=== PATIENT | female | born 1980 | race Caucasian/White ===

== ENCOUNTER 2016-03-28 07:47 | Emergency (ER) | payer MEDICAID ==
[~2016-03-28] VITALS: Ht 162.6 cm; Wt 89.8 kg
[2016-03-28 07:55] VITALS: BP 136/88; PULSE 88; RESP 18; TEMP 96.9; O2SAT 98
[2016-03-28] MEDS ORDERED: MECLIZINE HCL 25 MG TABLET (ANITVERT) PO ONE (08:15)
[2016-03-28 08:21] LABS: BASOPHILS % (AUTO) 0.4 % (0.0-2.0); EOSINOPHILS % (AUTO) 0.9 % (0.0-4.0); HEMATOCRIT 40.8 % (36-48); HEMOGLOBIN 14.1 g/dL (12.0-16.0); LYMPHOCYTES # (AUTO) 1.4 K/uL (1.0-5.5); LYMPHOCYTES % (AUTO) 25.7 % (20.5-51.5); MEAN CORPUSCULAR HEMOGLOBIN 29 pg (27-31); MEAN CORPUSCULAR HGB CONC 35 % (32-36); MEAN CORPUSCULAR VOLUME 85 fL (79.0-98.0); MONOCYTES # (AUTO) 0.5 K/uL (0.0-1.0); MONOCYTES % (AUTO) 9.4 % (1.7-9.3); NEUTROPHILS # (AUTO) 3.6 K/uL (1.8-7.7); NEUTROPHILS % (AUTO) 63.6 % (40.0-70.0); PLATELET COUNT (AUTO) 169 K/uL (130-430); RED BLOOD CELL COUNT(AUTO) 4.81 MIL/uL (4.2-6.2); RED CELL DISTRIBUTION WIDTH 12.3 % (9.0-15.0); WHITE BLOOD COUNT (AUTO) 5.5 K/uL (4.8-10.8)
[2016-03-28 08:29] LABS: CALCIUM 8.9 mg/dL (8.4-11.0); CREATININE 0.88 mg/dL (0.55-1.30); POTASSIUM 4.2 mmol/L (3.5-5.1)
[2016-03-28 08:34] LABS: ALBUMIN 3.9 g/dL (3.4-4.8); TOTAL BILIRUBIN 0.8 mg/dL (0.0-1.0); TOTAL PROTEIN, SERUM 7.9 g/dL (6.4-8.3)
[2016-03-28 08:35] LABS: BILIRUBIN,URINE NEGATIVE (NEGATIVE); BLOOD, URINE NEGATIVE (NEGATIVE); CLARITY/URINE SL HAZY (CLEAR); COLOR,URINE YELLOW (YELLOW); GLUCOSE,URINE NEGATIVE (NEGATIVE); KETONES,URINE NEGATIVE (NEGATIVE); LEUKOCYTE ESTERASE ,URINE NEGATIVE (NEGATIVE); NITRITE, URINE NEGATIVE (NEGATIVE); PROTEIN URINE NEGATIVE (NEGATIVE)
[2016-03-28 10:10] VITALS: BP 124/81; PULSE 88; RESP 16; TEMP 97.4; O2SAT 100
== END 2016-03-28 10:10 | disposition home or self-care (01) ==
LOC: SED 07:47
DX: R42 Dizziness and giddiness (principal); I10 Essential (primary) hypertension; J45.909 Unspecified asthma, uncomplicated; N83.209 Unspecified ovarian cyst, unspecified side; Z88.5 Allergy status to narcotic agent
CPT/HCPCS: 36415; 70450; 80053; 81003; 81025; 85025; 99285; J8597

== ENCOUNTER 2017-06-08 08:32 | Emergency (ER) | payer MEDICAID ==
[~2017-06-08] VITALS: Ht 160 cm; Wt 85.7 kg
[2017-06-08 08:41] VITALS: BP_SYST 141
[2017-06-08 08:57] LABS: BASOPHILS % (AUTO) 0.6 % (0.0-2.0); EOSINOPHILS # (AUTO) 0.1 K/uL (0.0-0.4); EOSINOPHILS % (AUTO) 1.4 % (0.0-4.0); HEMATOCRIT 43.9 % (36-48); HEMOGLOBIN 14.5 g/dL (12.0-16.0); LYMPHOCYTES # (AUTO) 1.6 K/uL (1.0-5.5); LYMPHOCYTES % (AUTO) 26.5 % (20.5-51.5); MEAN CORPUSCULAR HEMOGLOBIN 29 pg (27-31); MEAN CORPUSCULAR HGB CONC 33 % (32-36); MEAN CORPUSCULAR VOLUME 88 fL (79.0-98.0); MONOCYTES # (AUTO) 0.5 K/uL (0.0-1.0); MONOCYTES % (AUTO) 8.7 % (1.7-9.3); NEUTROPHILS % (AUTO) 62.8 % (40.0-70.0); PLATELET COUNT (AUTO) 226 K/uL (130-430); RED BLOOD CELL COUNT(AUTO) 5.01 MIL/uL (4.2-6.2); RED CELL DISTRIBUTION WIDTH 11.6 % (9.0-15.0); WHITE BLOOD COUNT (AUTO) 6.2 K/uL (4.8-10.8)
[2017-06-08] MEDS ORDERED: KETOROLAC TROMETHAMINE 30 MG VIAL IVP ONE (09:00)
[2017-06-08] MEDS ORDERED: NACL 0.9% 1,000 ML IV ONE (09:00)
[2017-06-08 09:12] LABS: CALCIUM 9.1 mg/dL (8.4-11.0); CREATININE 0.93 mg/dL (0.55-1.30); POTASSIUM 3.2 mmol/L (3.5-5.1)
[2017-06-08 09:16] LABS: ALBUMIN 3.7 g/dL (3.4-4.8); TOTAL BILIRUBIN 0.5 mg/dL (0.0-1.0); URIC ACID 4.3 mg/dL (2.4-7.0)
[2017-06-08] MEDS ORDERED: POTASSIUM CHLORIDE 10 MEQ TAB.PRT.SR PO ONE (10:30)
[2017-06-08] MEDS ORDERED: POTASSIUM CHLORIDE 10 MEQ TAB.PRT.SR ONE (10:37)
[2017-06-08 11:31] VITALS: BP_SYST 128
== END 2017-06-08 11:31 | disposition home or self-care (01) ==
LOC: SED 08:32
DX: J06.9 Acute upper respiratory infection, unspecified (principal); E87.6 Hypokalemia; M25.562 Pain in left knee; R19.7 Diarrhea, unspecified; J45.909 Unspecified asthma, uncomplicated; I10 Essential (primary) hypertension; Z88.6 Allergy status to analgesic agent
CPT/HCPCS: 36415; 73564; 80053; 84550; 85025; 96361; 96374; 99285; J1885; J7030

== ENCOUNTER 2018-11-18 08:40 | Emergency (ER) | payer MEDICAID ==
[~2018-11-18] VITALS: Ht 160 cm; Wt 83.9 kg
[2018-11-18 08:40] VITALS: BP_SYST 120
[2018-11-18] MEDS ORDERED: KETOROLAC TROMETHAMINE 60 MG/2 ML VIAL IM ONE (09:15)
[2018-11-18 09:41] LABS: BASOPHILS % (AUTO) 0.5 % (0.0-2.0); EOSINOPHILS # (AUTO) 0.1 K/uL (0.0-0.4); EOSINOPHILS % (AUTO) 1.8 % (0.0-4.0); HEMATOCRIT 36.9 % (36-48); HEMOGLOBIN 12.9 g/dL (12.0-16.0); LYMPHOCYTES # (AUTO) 1.3 K/uL (1.0-5.5); LYMPHOCYTES % (AUTO) 28.8 % (20.5-51.5); MEAN CORPUSCULAR HEMOGLOBIN 30 pg (27-31); MEAN CORPUSCULAR HGB CONC 35 % (32-36); MEAN CORPUSCULAR VOLUME 87 fL (79.0-98.0); MONOCYTES # (AUTO) 0.4 K/uL (0.0-1.0); MONOCYTES % (AUTO) 9.9 % (1.7-9.3); NEUTROPHILS # (AUTO) 2.6 K/uL (1.8-7.7); PLATELET COUNT (AUTO) 161 K/uL (130-430); RED BLOOD CELL COUNT(AUTO) 4.25 MIL/uL (4.2-6.2); RED CELL DISTRIBUTION WIDTH 13.1 % (9.0-15.0); WHITE BLOOD COUNT (AUTO) 4.4 K/uL (4.8-10.8)
[2018-11-18 09:55] LABS: CALCIUM 8.3 mg/dL (8.4-11.0); CREATININE 0.74 mg/dL (0.55-1.30); POTASSIUM 3.8 mmol/L (3.5-5.1)
[2018-11-18 10:00] LABS: ALBUMIN 3.2 g/dL (3.4-4.8); TOTAL BILIRUBIN 0.7 mg/dL (0.0-1.0)
[2018-11-18 10:46] VITALS: BP_SYST 120
== END 2018-11-18 10:47 | disposition home or self-care (01) ==
LOC: SED 08:40
DX: J45.909 Unspecified asthma, uncomplicated (principal); I10 Essential (primary) hypertension; Z88.6 Allergy status to analgesic agent
CPT/HCPCS: 36415; 74176; 80053; 81002; 83690; 85025; 96374; 99284; J1885

== ENCOUNTER 2019-05-05 20:22 | Emergency (ER) | payer MEDICAID ==
[~2019-05-05] VITALS: Ht 157.5 cm; Wt 84.4 kg
[2019-05-05 20:25] VITALS: BP_SYST 132
--- NOTE | 2019-05-05 20:25 | NUR ---
Placed in room 1 . Placed on desk monitor, blood pressure machine and pulse oximeter. To gown for exam. Side rails up. Report given to VANNESSA BAUTISTA.
--- NOTE | 2019-05-05 20:25 | NUR ---
Pt presents to ER with c/o chest pain. Pt A&Ox4. Pt states intermittent substernal chest pain began 2 weeks ago. Pt states pain 10/10. Pt states pain radiates to left armpit on inspiration and feels tightness. Pt states in addition to chest pain, pt feels like something is "stuck in throat". Breath sounds bilaterally clear with no use of accessory muscles. Pt denies trauma, fever, cough, nausea, vomiting. Will continue to monitor.
--- NOTE | 2019-05-05 20:30 | NUR ---
# 18 gauge angiocath placed to L AC. Use of asceptic technique. Opsite placed over site. Blood return noted. Blood for lab drawn from site. Flushed with 10 cc of normal saline. No evidence of infiltration noted. Patient tolerated well.
--- NOTE | 2019-05-05 20:55 | NUR ---
ER Dr. Nicole at bedside examining patient.
[2019-05-05 21:12] LABS: BASOPHILS % (AUTO) 0.5 % (0.0-2.0); EOSINOPHILS # (AUTO) 0.3 K/uL (0.0-0.4); EOSINOPHILS % (AUTO) 2.9 % (0.0-4.0); HEMATOCRIT 40.3 % (36-48); HEMOGLOBIN 13.8 g/dL (12.0-16.0); LYMPHOCYTES # (AUTO) 2.3 K/uL (1.0-5.5); LYMPHOCYTES % (AUTO) 22.9 % (20.5-51.5); MEAN CORPUSCULAR HEMOGLOBIN 30 pg (27-31); MEAN CORPUSCULAR HGB CONC 34 % (32-36); MEAN CORPUSCULAR VOLUME 87 fL (79.0-98.0); MONOCYTES # (AUTO) 0.9 K/uL (0.0-1.0); MONOCYTES % (AUTO) 9.3 % (1.7-9.3); NEUTROPHILS # (AUTO) 6.5 K/uL (1.8-7.7); NEUTROPHILS % (AUTO) 64.4 % (40.0-70.0); PLATELET COUNT (AUTO) 243 K/uL (130-430); RED BLOOD CELL COUNT(AUTO) 4.61 MIL/uL (4.2-6.2); RED CELL DISTRIBUTION WIDTH 12.8 % (9.0-15.0); WHITE BLOOD COUNT (AUTO) 10.1 K/uL (4.8-10.8)
[2019-05-05 21:55] LABS: CALCIUM 8.8 mg/dL (8.4-11.0); CREATININE 1.08 mg/dL (0.55-1.30); POTASSIUM 4.1 mmol/L (3.5-5.1)
[2019-05-05 22:01] LABS: ALBUMIN 3.4 g/dL (3.4-4.8); TOTAL BILIRUBIN 0.3 mg/dL (0.0-1.0)
--- NOTE | 2019-05-05 22:44 | NUR ---
Pt given blanket for comfort and water. Will continue to monitor.
[2019-05-05 23:56] VITALS: BP_SYST 110
--- NOTE | 2019-05-05 23:56 | NUR ---
Patient given written and verbal discharge instructions and verbalizes understanding. ER MD Nicole discussed with patient the results and treatment provided. Patient in stable condition. ID arm band removed. IV catheter removed intact and dressing applied, no active bleeding. No Rx given. Patient educated on pain management and to follow up with PMD. Pain Scale 0/10. Opportunity for questions provided and answered. Medication side effect fact sheet provided.
== END 2019-05-05 23:56 | disposition home or self-care (01) ==
LOC: SED 20:22
DX: R07.89 Other chest pain (principal); J45.909 Unspecified asthma, uncomplicated; I10 Essential (primary) hypertension; Z90.710 Acquired absence of both cervix and uterus; Z88.6 Allergy status to analgesic agent
CPT/HCPCS: 36415; 71045; 80053; 82550-TC; 83880; 84484; 85025; 85379; 93005; 99285

== ENCOUNTER 2021-09-29 18:21 | Emergency (ER) | payer MEDICAID ==
[~2021-09-29] VITALS: Ht 157.5 cm; Wt 67.6 kg
[2021-09-29 18:27] VITALS: BP_SYST 116
--- NOTE | 2021-09-29 18:30 | NUR ---
PT TRIAGED IN WAITING ROOM. PT HAS C/O C/P X 4D AY, FEVER X5 DAYS NAUSEA, COUGH CAUSING SOB AT TIMES. PT WAS DX 5 DAYS AGO WITH UTI, BUT NOT ON MEDICATION FOR IT. PT IS TACHYCARDIC HR 110S. TEMP 99.3. RESP E/U. ON R/A. LUNG SOUNDS DIMINISHED. O2 ST 95%. PT HAS PAST MEDICAL HX OF UTI, HTN, ASTHMA. EKG OBTAINED.
--- NOTE | 2021-09-29 18:39 | NUR ---
DR. SEWELL MADE AWARE PT HAS BEEN TRIAGE AND TAKEN AT THIS TIME FOR CXR.
[2021-09-29 19:35] LABS: BASOPHILS % (AUTO) 0.4 % (0.0-2.0); EOSINOPHILS # (AUTO) 0.1 K/uL (0.0-0.4); EOSINOPHILS % (AUTO) 2.3 % (0.0-4.0); HEMATOCRIT 34.3 % (36-48); HEMOGLOBIN 11.7 g/dL (12.0-16.0); LYMPHOCYTES # (AUTO) 1.1 K/uL (1.0-5.5); LYMPHOCYTES % (AUTO) 20.4 % (20.5-51.5); MEAN CORPUSCULAR HEMOGLOBIN 27 pg (27-31); MEAN CORPUSCULAR HGB CONC 34 % (32-36); MEAN CORPUSCULAR VOLUME 80 fL (79.0-98.0); MONOCYTES # (AUTO) 0.5 K/uL (0.0-1.0); MONOCYTES % (AUTO) 9.3 % (1.7-9.3); NEUTROPHILS # (AUTO) 3.5 K/uL (1.8-7.7); NEUTROPHILS % (AUTO) 67.6 % (40.0-70.0); PLATELET COUNT (AUTO) 311 K/uL (130-430); RED CELL DISTRIBUTION WIDTH 14.1 % (9.0-15.0); WHITE BLOOD COUNT (AUTO) 5.2 K/uL (4.8-10.8)
[2021-09-29 19:44] LABS: ANION GAP 8 (5-15); CALCIUM 8.9 mg/dL (8.4-11.0); CHLORIDE 99 mmol/L (98-107); CREATININE 0.73 mg/dL (0.55-1.30); GLUCOSE 101 mg/dL (70-99); POTASSIUM 3.6 mmol/L (3.5-5.1); SODIUM SERUM 136 mmol/L (136-145); UREA NITROGEN, BLOOD 8 mg/dL (8-21)
[2021-09-29 19:46] LABS: GFR AFRICAN AMERICAN 113 mL/min (>90)
[2021-09-29 20:00] LABS: ALANINE AMINOTRANSFERASE 18 U/L (12-78); ALBUMIN 2.8 g/dL (3.4-4.8); ASPARTATE AMINOTRANSFERASE 46 U/L (10-37); TOTAL BILIRUBIN 0.4 mg/dL (0.0-1.0)
--- NOTE | 2021-09-29 20:19 | NUR ---
Patient to ER bed 07 for evaluation. Side rails up. Report given to Callie BAUTISTA.
--- NOTE | 2021-09-29 20:30 | NUR ---
COVID sample collected and sent to lab.
[2021-09-29] MEDS ORDERED: ZIT250 PO (20:33)
[2021-09-29] MEDS ORDERED: PRED20TA PO (20:33)
--- NOTE | 2021-09-29 20:39 | NUR ---
PT SEEN AND EXAMINE BY DR. SEWELL. PT AAOX4 AT THIS TIME, NO SOB NOTED AND NOT IN ANY DISTRESS AT THIS TIME.
--- NOTE | 2021-09-29 20:58 | NUR ---
INFORMED DR. SEWELL THAT PT HAS TEMP AND RECENTLY DX WITH UTI. MD RE ASSESS PT AT BEDSIDE AND INFORMED PT THAT SHE BE GIVEN ABX AND MOTRIN.
[2021-09-29] MEDS ORDERED: NITR-85 PO (20:59)
[2021-09-29] MEDS ORDERED: IBUPROFEN 800 MG TABLET PO ONE (21:00)
[2021-09-29] MEDS ORDERED: IBUP-1969 PO (21:00)
[2021-09-29] MEDS ORDERED: cefTRIAXone 1 GM in LIDOCAINE 1%, 20 ML MDV 2.1 ML IM ONE (21:00)
[2021-09-29 21:03] VITALS: BP_SYST 105
--- NOTE | 2021-09-29 21:34 | NUR ---
PT INSISTED TO GO HOME, SHE STATED THAT SHE CANNOT WAIT FOR HER VITALS TO BE RECHECKED. DC INSTRUCTION AND PRESCRIPTION WERE GIVEN TO PT ALSO INSTRUCTED TO F/U WITH HER PCP AND RECEHECK HER TEMP AT HOME. SHE VRBALIZED UNDERSTANDING
== END 2021-09-29 21:36 | disposition home or self-care (01) ==
LOC: SED 18:21
DX: J45.909 Unspecified asthma, uncomplicated (principal); R50.9 Fever, unspecified; R05.9 Cough, unspecified; I10 Essential (primary) hypertension; Z88.5 Allergy status to narcotic agent; Z79.899 Other long term (current) drug therapy; Z20.822 Contact with and (suspected) exposure to COVID-19
CPT/HCPCS: 99285; 71045; 87426; 80053; 85025; 84484; 36415; 93005; 96372; J0696; J2001

== ENCOUNTER 2021-10-08 14:27 | Inpatient (IN) | payer MEDICAID ==
[~2021-10-08] VITALS: Ht 157.5 cm; Wt 62.6 kg
[~2021-10-08 14:27] MED LIST: IBUP-1969 PO; NITR-85 PO; PRED20TA PO
[2021-10-08 14:30] VITALS: BP_SYST 112
--- NOTE | 2021-10-08 14:34 | NUR ---
Patient to ER bed 5 to gown for evaluation. Side rails up. Report given to MELISSA BAUTISTA
--- NOTE | 2021-10-08 14:35 | NUR ---
Pt BIBA BLS coming from home ambulatory with steady gait. Pt c/o having sob, lack of appetite, inintentional vince loss from 160 to 120lb within 4 weeks, fatigue, chest pressure, and dyaphoresis. Pt has hx of HTN and Asthma. Allergic to Tramadol. A&Ox4. Skin intact. VSS. Denies n/v. Cranial nerves intact. Pupils PERRLA. Bed in lowest position.
--- NOTE | 2021-10-08 14:39 | NUR ---
ER at bedside examining patient.
[2021-10-08] MEDS ORDERED: IPRATROPIUM/ALBUTEROL SULFATE 3 ML AMPUL.NEB (DUONEB) INH ONE (14:45)
[2021-10-08] MEDS ORDERED: methylPREDNISolone SOD SUCC/PF 62.5 MG/ML VIAL IVP ONE (14:45)
--- NOTE | 2021-10-08 14:59 | NUR ---
EKG performed at by Lela BAUTISTA. Physician given copy of EKG for review.
--- NOTE | 2021-10-08 14:59 | NUR ---
RT at bedside.
--- NOTE | 2021-10-08 15:03 | NUR ---
Covid and flu swan done and sent to lab.
--- NOTE | 2021-10-08 15:20 | NUR ---
Consent for CT Angio of Chest with contast obtained.
--- NOTE | 2021-10-08 15:25 | NUR ---
# 20 gauge angiocath placed to right AC. Use of asceptic technique. Opsite placed over site. Blood return noted. Flushed with 10 cc of normal saline. No evidence of infiltration noted. Patient tolerated well.
[2021-10-08 15:31] LABS: BASOPHILS % (AUTO) 0.4 % (0.0-2.0); EOSINOPHILS % (AUTO) 0.2 % (0.0-4.0); HEMATOCRIT 36.6 % (36-48); HEMOGLOBIN 12.2 g/dL (12.0-16.0); LYMPHOCYTES # (AUTO) 2.8 K/uL (1.0-5.5); LYMPHOCYTES % (AUTO) 31.6 % (20.5-51.5); MEAN CORPUSCULAR HEMOGLOBIN 26 pg (27-31); MEAN CORPUSCULAR HGB CONC 33 % (32-36); MEAN CORPUSCULAR VOLUME 79 fL (79.0-98.0); MONOCYTES # (AUTO) 0.8 K/uL (0.0-1.0); NEUTROPHILS # (AUTO) 5.2 K/uL (1.8-7.7); NEUTROPHILS % (AUTO) 58.8 % (40.0-70.0); PLATELET COUNT (AUTO) 277 K/uL (130-430); RED BLOOD CELL COUNT(AUTO) 4.63 MIL/uL (4.2-6.2); RED CELL DISTRIBUTION WIDTH 14.1 % (9.0-15.0); WHITE BLOOD COUNT (AUTO) 8.9 K/uL (4.8-10.8)
--- NOTE | 2021-10-08 15:41 | NUR ---
Pt states she cannot urinate at this time. A cup of water given to pt.
[2021-10-08 15:49] LABS: ANION GAP 10 (5-15); CALCIUM 8.9 mg/dL (8.4-11.0); CHLORIDE 96 mmol/L (98-107); CREATININE 0.66 mg/dL (0.55-1.30); GLUCOSE 88 mg/dL (70-99); POTASSIUM 3.5 mmol/L (3.5-5.1); SODIUM SERUM 133 mmol/L (136-145); UREA NITROGEN, BLOOD 11 mg/dL (8-21)
[2021-10-08 15:58] LABS: ALANINE AMINOTRANSFERASE 22 U/L (12-78); ALBUMIN 2.6 g/dL (3.4-4.8); ASPARTATE AMINOTRANSFERASE 44 U/L (10-37); TOTAL BILIRUBIN 0.9 mg/dL (0.0-1.0)
[2021-10-08 16:06] LABS: GFR AFRICAN AMERICAN 127 mL/min (>90)
--- NOTE | 2021-10-08 16:07 | NUR ---
Urine preg done and results were negative. Radiology made aware.
[2021-10-08 16:09] LABS: PROTHROMBIN TIME 10.6 SECS (9.5-12.5)
[2021-10-08] MEDS ORDERED: iohexoL 350 mgI/mL, 100 ML INFUS..BTL IV ONE (16:12)
--- NOTE | 2021-10-08 16:17 | NUR ---
Patient transported to radiology via wheelchair, accompanied by pc tech.
[2021-10-08] MEDS ORDERED: NACL 0.9% 1,000 ML IV ONE (16:30)
--- NOTE | 2021-10-08 16:34 | NUR ---
Returned from radiology, back to [facility].
[2021-10-08] MEDS ORDERED: DOXYCYCLINE HYCLATE 100 MG CAPSULE PO ONE (16:45)
[2021-10-08] MEDS ORDERED: cefTRIAXone 1 GM IVPB PREMIX 50 ML IV ONE (16:45)
--- NOTE | 2021-10-08 17:57 | NUR ---
Admit bed requested Patient will be admitted to care of . Admitted to Tele unit. Diagnosis Pneumonia Inpatient (Yes or No) yes Observation (Yes or No) no Orientation concerns or request close to nursing station (Yes or No) no Covid Status negative On vent or bipap no Isolation requirements no Needs a sitter no From Home (Yes or if No enter name of facility) yes Requires Dialysis (Yes or No) no Med Rec Completed (Yes of No) yes
[2021-10-08] MEDS: NACL 0.9% 1,000 ML IV SCH ×2 (18:00→23:02)
[2021-10-08 18:11] LABS: FREE T4 (FREE THYROXINE) 1.7 ng/dl (0.8-1.5); THYROID STIMULATING HORMONE 0.38 uIu/mL (0.36-3.74)
--- NOTE | 2021-10-08 18:22 | NUR ---
Provided with a Reg. Food Tray for dinner.
--- NOTE | 2021-10-08 20:04 | NUR ---
Received report from Lela BAUTISTA Pt resting comfortably in bed AOX4 VSS Able to make needs known NAD at this time Will continue to monitor
--- NOTE | 2021-10-08 20:32 | NUR ---
Patient will be admitted to [id number]. Belongings list completed. Complete and up to date summary report printed. SBAR report to be given at bedside with opportunity for questions.
[2021-10-08 20:45] VITALS: BP_SYST 118
[2021-10-08] MEDS ORDERED: ZOLPIDEM TARTRATE 5 MG TABLET PO PRN (21:00)
[2021-10-08] MEDS ORDERED: ACETAMINOPHEN 500 MG TABLET PO PRN (21:00)
[2021-10-08] MEDS ORDERED: DOCUSATE SODIUM 100 MG/10 ML UDC PO PRN (21:00)
[2021-10-08] MEDS ORDERED: guaiFENesin/DEXTROMETHORPHAN 10 ML UDC PO PRN (21:00)
--- NOTE | 2021-10-08 22:30 | NUR ---
PT C/O SOB. NEW ORDER RECEIVED FOR BREATHING TREATMENT. RT AT BEDSIDE GIVING TREATMENT. ALL OTHER NEEDS MEET AT THIS TIME. WILL CONTINUE TO MONITOR.
[2021-10-08] MEDS ORDERED: IPRATROPIUM/ALBUTEROL SULFATE 3 ML AMPUL.NEB (DUONEB) INH PRN (23:00)
[2021-10-08 23:51] LABS: PHOSPHORUS 3.9 mg/dL (2.7-4.5)
[2021-10-09 00:05] VITALS: BP_SYST 124
[2021-10-09 00:45] VITALS: BP_SYST 118
--- NOTE | 2021-10-09 03:39 | NUR ---
CONSULTATION PAGED/CALLED Reason for Consultation: PNA Person Who was Notified:LISA Consulting Physician: KARISHMA Cap Blocker Specialty: Ordering Physician: ANAHI
[2021-10-09 06:40] LABS: BASOPHILS % (AUTO) 0.1 % (0.0-2.0); HEMATOCRIT 30.5 % (36-48); HEMOGLOBIN 10.8 g/dL (12.0-16.0); LYMPHOCYTES # (AUTO) 0.5 K/uL (1.0-5.5); LYMPHOCYTES % (AUTO) 10.7 % (20.5-51.5); MEAN CORPUSCULAR HEMOGLOBIN 27 pg (27-31); MEAN CORPUSCULAR HGB CONC 35 % (32-36); MEAN CORPUSCULAR VOLUME 78 fL (79.0-98.0); MONOCYTES # (AUTO) 0.3 K/uL (0.0-1.0); MONOCYTES % (AUTO) 6.4 % (1.7-9.3); NEUTROPHILS % (AUTO) 82.8 % (40.0-70.0); PLATELET COUNT (AUTO) 277 K/uL (130-430); RED BLOOD CELL COUNT(AUTO) 3.93 MIL/uL (4.2-6.2); RED CELL DISTRIBUTION WIDTH 13.9 % (9.0-15.0); WHITE BLOOD COUNT (AUTO) 4.9 K/uL (4.8-10.8)
[2021-10-09 06:57] LABS: PROTHROMBIN TIME 10.3 SECS (9.5-12.5)
[2021-10-09 07:48] LABS: CREATININE 0.53 mg/dL (0.55-1.30); POTASSIUM 4.4 mmol/L (3.5-5.1)
[2021-10-09 07:49] VITALS: BP_SYST 121
[2021-10-09] MEDS: PANTOPRAZOLE SODIUM 40 MG TAB PO SCH (08:16)
[2021-10-09] MEDS: cefTRIAXone 1 GM IVPB PREMIX 50 ML IV SCH (08:36)
[2021-10-09] MEDS ORDERED: POTASSIUM CHLORIDE 20 MEQ TAB.PRT.SR PO PRN (09:00)
[2021-10-09] MEDS ORDERED: IPRATROPIUM/ALBUTEROL SULFATE 3 ML AMPUL.NEB (DUONEB) INH PRN (09:45)
[2021-10-09] MEDS: IPRATROPIUM/ALBUTEROL SULFATE 3 ML AMPUL.NEB (DUONEB) INH SCH ×4 (11:47→23:00)
[2021-10-09 12:00] VITALS: BP_SYST 123
[2021-10-09] MEDS: ONDANSETRON HCL 4 MG/2 ML VIAL IVP PRN ×2 (12:20→18:11)
[2021-10-09] MEDS: NACL 0.9% 1,000 ML IV SCH ×2 (14:00→21:44)
[2021-10-09 16:32] VITALS: BP_SYST 106
--- NOTE | 2021-10-09 18:12 | NUR ---
PT GIVEN ZOFRAN AGAIN, PT REPORTED THAT SHE JUST TOOK A BITE OF THE MEAT AND SHE STARTED VOMITING. PT'S VOMITUS IS CLEAR AND FROTHY. WILL CONTINUE TO MONITOR.
--- NOTE | 2021-10-09 18:55 | NUR ---
PT HAD A GOOD RELIEF FROM ZOFRAN, N/V SUBSIDED, PT REFUSED TO EAT AT THIS TIME. GIVEN SOME JELLO.
[2021-10-09 20:00] VITALS: BP_SYST 105
[2021-10-10] VITALS: BP_SYST 117
[2021-10-10] MEDS: IPRATROPIUM/ALBUTEROL SULFATE 3 ML AMPUL.NEB (DUONEB) INH SCH ×2 (03:00→07:40)
[2021-10-10 03:55] LABS: BILIRUBIN,URINE NEGATIVE (NEGATIVE); BLOOD, URINE NEGATIVE (NEGATIVE); CLARITY/URINE CLEAR (CLEAR); COLOR,URINE YELLOW (YELLOW); GLUCOSE,URINE NEGATIVE (NEGATIVE); KETONES,URINE TRACE (NEGATIVE); LEUKOCYTE ESTERASE ,URINE TRACE (NEGATIVE); NITRITE, URINE NEGATIVE (NEGATIVE); PROTEIN URINE NEGATIVE (NEGATIVE)
[2021-10-10 04:01] LABS: BACTERIA,URINE RARE /HPF (None Seen)
[2021-10-10 04:28] LABS: BARBITURATE, URINE NEGATIVE (NEG <=200); METHAMPHETAMINES SCREEN,URINE NEGATIVE (NEG <=500); URINE AMPHETAMINE NEGATIVE (NEG <=500); URINE METHADONE NEGATIVE (NEG <=200)
[2021-10-10 04:29] LABS: BENZODIAZEPINE, URINE NEGATIVE (NEG <=150); CANNABINOID, URINE NEGATIVE (NEG <=50); COCAINE, URINE NEGATIVE (NEG <=150); OPIATE, URINE POSITIVE (NEG <=100); PHENCYCLIDINE SCREEN,URINE NEGATIVE (NEG <=25); UR TRICYCLIC ANTIDEPRESSANTS NEGATIVE (NEG <=300); URINE OXYCODONE SCREEN NEGATIVE (NEG <=100); URINE PROPOXYPHENE SCREEN NEGATIVE (NEG <=300)
[2021-10-10] MEDS: ONDANSETRON HCL 4 MG/2 ML VIAL IVP PRN (05:46)
[2021-10-10 06:39] LABS: BASOPHILS % (AUTO) 0.2 % (0.0-2.0); EOSINOPHILS % (AUTO) 0.1 % (0.0-4.0); HEMATOCRIT 31.8 % (36-48); LYMPHOCYTES % (AUTO) 10.3 % (20.5-51.5); MEAN CORPUSCULAR HEMOGLOBIN 27 pg (27-31); MEAN CORPUSCULAR HGB CONC 35 % (32-36); MEAN CORPUSCULAR VOLUME 78 fL (79.0-98.0); MONOCYTES # (AUTO) 0.6 K/uL (0.0-1.0); MONOCYTES % (AUTO) 5.8 % (1.7-9.3); NEUTROPHILS # (AUTO) 8.3 K/uL (1.8-7.7); NEUTROPHILS % (AUTO) 83.6 % (40.0-70.0); PLATELET COUNT (AUTO) 329 K/uL (130-430); RED BLOOD CELL COUNT(AUTO) 4.06 MIL/uL (4.2-6.2); RED CELL DISTRIBUTION WIDTH 13.8 % (9.0-15.0)
[2021-10-10 06:58] LABS: CALCIUM 7.9 mg/dL (8.4-11.0); CREATININE 0.77 mg/dL (0.55-1.30); POTASSIUM 3.9 mmol/L (3.5-5.1)
--- NOTE | 2021-10-10 07:43 | NUR ---
RT NOTE: 0743 Stopped treatment due to patient being tachycardic. Patient placed back on 2LPM nasal cannula. RN at bedside tending to patient. Addendum: 10/10/21 at 0747 by Melvina Leo RT Amended: Links added.
[2021-10-10 08:02] VITALS: BP_SYST 108
--- NOTE | 2021-10-10 08:12 | NUR ---
DR MORRISSEY IS HERE , INFORMED MD HENDERSON PT'S CURRENT HR OF 142 THIS AM AND VOMITING SINCE YESTERDAY FOR WHICH ZOFRAN HAS BEEN GIVEN. SAID SHE WILL TAKE A LOOK.
[2021-10-10] MEDS: cefTRIAXone 1 GM IVPB PREMIX 50 ML IV SCH (08:31)
[2021-10-10] MEDS: PANTOPRAZOLE SODIUM 40 MG TAB PO SCH (08:31)
--- NOTE | 2021-10-10 09:20 | NUR ---
DR CORDOVA HERE AND SEEN PT. POC -> EGD IN AM.
[2021-10-10] MEDS: AZITHROMYCIN 500 MG in NS 250 ML IV SCH (09:32)
--- NOTE | 2021-10-10 09:35 | NUR ---
Dr. Jasmine donation specialist for Dr Brooks has seen the patient.
[2021-10-10] MEDS: HYDROcodone/ACETAMIN 5-325 MG TAB (NORCO/ VICODIN) PO PRN ×2 (10:28→23:09)
[2021-10-10] MEDS: METHYLPREDNISOLONE SOD SUCC 40 MG/ML VIAL IVP SCH ×3 (11:39→23:07)
--- NOTE | 2021-10-10 11:44 | NUR ---
PT HAD A GOOD PAIN RELIEF FROM NORCO FOR HER EPIGASTRIC PAIN.
[2021-10-10] MEDS: levalbuterol HCL 0.63 MG/3 ML VIAL.NEB INH SCH ×2 (13:00→19:00)
[2021-10-10 14:02] VITALS: BP_SYST 103
--- NOTE | 2021-10-10 17:19 | NUR ---
Dietitian Recommendations * Continue Clear liquid diet (comes standard w/ Ensure Clear TID; yields 720 kcal/day, 24 gm protein/day) and plan for NPO prior to procedure * Consider ONS if/when medically appropriate LP, MS, RD Please refer to Nutrition Assessment for details. Addendum: 10/10/21 at [address] Amended: Links added.
[2021-10-10 17:53] VITALS: BP_SYST 129
[2021-10-10 19:40] VITALS: BP_SYST 124
--- NOTE | 2021-10-10 19:40 | NUR ---
PM ASSESSMENT; -Pt is a/xo4, resting in bed comfortably. Pt denies any chest pain,pain,sob,or any acute distress. IV site of LFA patent, no s/s any infiltration after flushed w/ NS, drsg cdi. Maintains droplet & contact isolation. Pt is r/o for Covid, result is still pending. Taught & discussed poc,all safety measures, NPO after midnight for EGD procedure in am, pt verbalized understanding. Pt is able to use call light whenever needs assistance, pt shows good return demonstration. Call light w/in reach. Side rails x2. Cont to monitor pt.
[2021-10-10] MEDS: PANTOPRAZOLE SODIUM 40 MG/VIAL (PROTONIX) IVP SCH (20:40)
--- NOTE | 2021-10-10 23:09 | NUR ---
ROUNDS; -Pt awakes, laying in bed. Pt is c/o of throat pain,gave [place] po upon pt's request. Will reassess pain level w/in an hour. All safety measures in place. Call light w/in reach. Maintains droplet & contact isolation entire time. cont to monitor pt.
[2021-10-11 00:09] VITALS: BP_SYST 150
--- NOTE | 2021-10-11 00:09 | NUR ---
ROUNDS; NPO STATUS -Pt is asleep, easily awoke upon making rounds. Pt denies any pain,sob,chest pain, or any acute distress. Removed all food and fluids away from pt. VS stable. All safety measures in place. Call light w/in reach. Maintains droplet & contact isolation entire time. cont to monitor pt.
[2021-10-11] MEDS: levalbuterol HCL 0.63 MG/3 ML VIAL.NEB INH SCH ×4 (01:00→19:00)
--- NOTE | 2021-10-11 02:20 | NUR ---
ROUNDS; -Pt is asleep. NO s/s any pain,sob,or any acute distress noted. All safety measures in place. Call light w/in reach. Maintains droplet & contact isolation entire time. cont to monitor pt.
[2021-10-11] MEDS: METHYLPREDNISOLONE SOD SUCC 40 MG/ML VIAL IVP SCH ×4 (05:38→23:14)
--- NOTE | 2021-10-11 05:38 | NUR ---
ROUNDS; -Pt is asleep,easily awakes upon making rounds. Pt denies any pain,sob,or any acute distress. Gave Solumed IVP. All safety measures in place. Call light w/in reach. Maintains droplet & contact isolation entire time. cont to monitor pt.
--- NOTE | 2021-10-11 06:37 | NUR ---
CLOSING NOTES; -Pt is resting in bed comfortably. NO s/s any chest pain,pain,sob,or any acute distress noted. IV site of LFA patent, no s/s any infiltration, drsg cdi. Maintains droplet & contact isolation. Pt is r/o for Covid, result is still pending this am. NPO since midnight for EGD. Call light w/in reach. Side rails x2. Will endorse to next nurse to cont care.
[2021-10-11 06:53] LABS: BASOPHILS % (AUTO) 0.1 % (0.0-2.0); HEMATOCRIT 31.1 % (36-48); HEMOGLOBIN 10.8 g/dL (12.0-16.0); LYMPHOCYTES # (AUTO) 0.5 K/uL (1.0-5.5); LYMPHOCYTES % (AUTO) 9.4 % (20.5-51.5); MEAN CORPUSCULAR HEMOGLOBIN 27 pg (27-31); MEAN CORPUSCULAR HGB CONC 35 % (32-36); MEAN CORPUSCULAR VOLUME 78 fL (79.0-98.0); MONOCYTES # (AUTO) 0.2 K/uL (0.0-1.0); MONOCYTES % (AUTO) 3.9 % (1.7-9.3); NEUTROPHILS # (AUTO) 4.7 K/uL (1.8-7.7); NEUTROPHILS % (AUTO) 86.6 % (40.0-70.0); PLATELET COUNT (AUTO) 273 K/uL (130-430); RED BLOOD CELL COUNT(AUTO) 3.98 MIL/uL (4.2-6.2); RED CELL DISTRIBUTION WIDTH 14.5 % (9.0-15.0); WHITE BLOOD COUNT (AUTO) 5.4 K/uL (4.8-10.8)
[2021-10-11 07:44] LABS: INR 0.9 (0.8-1.2); PROTHROMBIN TIME 9.8 SECS (9.5-12.5)
[2021-10-11 07:57] LABS: CALCIUM 8.6 mg/dL (8.4-11.0); CREATININE 0.48 mg/dL (0.55-1.30); POTASSIUM 4.4 mmol/L (3.5-5.1)
[2021-10-11 08:12] VITALS: BP_SYST 130
[2021-10-11] MEDS: PANTOPRAZOLE SODIUM 40 MG/VIAL (PROTONIX) IVP SCH ×2 (09:18→21:37)
[2021-10-11] MEDS: cefTRIAXone 1 GM IVPB PREMIX 50 ML IV SCH (09:19)
[2021-10-11] MEDS: AZITHROMYCIN 500 MG in NS 250 ML IV SCH (09:19)
[2021-10-11] MEDS ORDERED: SIMETHICONE 40 MG/0.6 ML ML ONE (11:31)
[2021-10-11] MEDS ORDERED: fentaNYL CITRATE/PF 100 MCG/2 ML AMP ONE (11:31)
[2021-10-11 12:00] VITALS: BP_SYST 140
[2021-10-11] MEDS: MIDAZOLAM HCL 5 MG/5 ML VIAL ONE ×2 (12:04→12:06)
[2021-10-11] MEDS ORDERED: ALBUTEROL SULFATE 0.083% 2.5 MG/3 ML VIAL.NEB INH ONE (12:15)
--- NOTE | 2021-10-11 12:32 | NUR ---
DC ISOLATION : PUI/COVID SPOKE WITH DR YUNI CARSON DC ISOLATION: SAID OKAY TO DC ISOLATION FOR COVID AND NO NEED TO CHECK PT FOR TB.
[2021-10-11] MEDS ORDERED: FLUCONAZOLE 200 MG TABLET (DIFLUCAN) PO ONE (13:15)
[2021-10-11 16:43] VITALS: BP_SYST 135
[2021-10-11 19:40] VITALS: BP_SYST 127
--- NOTE | 2021-10-11 19:40 | NUR ---
PM ASSESSMENT; -Pt is a/xo4, resting in bed comfortably. Pt denies any chest pain,pain,sob,or any acute distress. IV site of LFA patent, no s/s any infiltration after flushed w/ NS, chapitog cdi. Taught & discussed poc,all safety measures, and to inform nurse if experiencing any distress or needs assistance, pt verbalized understanding. Pt is able to use call light whenever needs assistance, pt shows good return demonstration. Call light w/in reach. Side rails x2. Cont to monitor pt.
--- NOTE | 2021-10-11 23:14 | NUR ---
ROUNDS; -Pt awakes, laying in bed comfortably. Pt denies any chest pain,pain,sob,or any acute distress. Offered snack and fluid, pt just took some Norberto crackers and some saltine cracker and refilled cold ice water pitcher. Call light w/in reach. Cont to monitor pt.
[2021-10-12] VITALS (7 sets, daily range): BP systolic 123–138
[2021-10-12] MEDS: levalbuterol HCL 0.63 MG/3 ML VIAL.NEB INH SCH ×4 (02:04→19:55)
[2021-10-12] MEDS: METHYLPREDNISOLONE SOD SUCC 40 MG/ML VIAL IVP SCH ×3 (05:22→18:00)
[2021-10-12 07:04] LABS: CALCIUM 9.1 mg/dL (8.4-11.0); CREATININE 0.64 mg/dL (0.55-1.30); POTASSIUM 4.2 mmol/L (3.5-5.1)
[2021-10-12 07:09] LABS: HEMATOCRIT 31.7 % (36-48); HEMOGLOBIN 11.1 g/dL (12.0-16.0); LYMPHOCYTES # (AUTO) 0.5 K/uL (1.0-5.5); LYMPHOCYTES % (AUTO) 6.4 % (20.5-51.5); MEAN CORPUSCULAR HEMOGLOBIN 28 pg (27-31); MEAN CORPUSCULAR HGB CONC 35 % (32-36); MEAN CORPUSCULAR VOLUME 78 fL (79.0-98.0); MONOCYTES # (AUTO) 0.4 K/uL (0.0-1.0); MONOCYTES % (AUTO) 4.6 % (1.7-9.3); NEUTROPHILS # (AUTO) 7.5 K/uL (1.8-7.7); PLATELET COUNT (AUTO) 306 K/uL (130-430); RED BLOOD CELL COUNT(AUTO) 4.06 MIL/uL (4.2-6.2); RED CELL DISTRIBUTION WIDTH 14.3 % (9.0-15.0); WHITE BLOOD COUNT (AUTO) 8.4 K/uL (4.8-10.8)
--- NOTE | 2021-10-12 07:38 | NUR ---
CLOSING NOTES; -Pt is resting in bed comfortably. Pt removed oxy and g9ouy=63% r/a. Pt stated, " I am just going to use it when I feel short of breath and per md recommended. " NO s/s any chest pain,pain,sob,or any acute distress noted. IV site of LFA patent, no s/s any infiltration, drsg cdi. Call light w/in reach. Side rails x2. Will endorse to next nurse to cont care.
[2021-10-12] MEDS: FLUCONAZOLE 200 MG TABLET (DIFLUCAN) PO SCH (09:45)
[2021-10-12] MEDS: PANTOPRAZOLE SODIUM 40 MG/VIAL (PROTONIX) IVP SCH ×2 (09:45→21:38)
[2021-10-12] MEDS: cefTRIAXone 1 GM IVPB PREMIX 50 ML IV SCH (09:45)
[2021-10-12] MEDS: AZITHROMYCIN 500 MG in NS 250 ML IV SCH (10:52)
[2021-10-12] MEDS: HYDROcodone/ACETAMIN 5-325 MG TAB (NORCO/ VICODIN) PO PRN (18:06)
[2021-10-13] MEDS: HYDROcodone/ACETAMIN 5-325 MG TAB (NORCO/ VICODIN) PO PRN ×3 (00:05→19:14)
[2021-10-13] MEDS: METHYLPREDNISOLONE SOD SUCC 40 MG/ML VIAL IVP SCH ×4 (00:09→19:13)
[2021-10-13] MEDS: levalbuterol HCL 0.63 MG/3 ML VIAL.NEB INH SCH ×3 (03:19→19:00)
[2021-10-13 07:06] LABS: BASOPHILS % (AUTO) 0.1 % (0.0-2.0); HEMATOCRIT 32.9 % (36-48); HEMOGLOBIN 11.3 g/dL (12.0-16.0); LYMPHOCYTES # (AUTO) 0.4 K/uL (1.0-5.5); LYMPHOCYTES % (AUTO) 5.9 % (20.5-51.5); MEAN CORPUSCULAR HEMOGLOBIN 27 pg (27-31); MEAN CORPUSCULAR HGB CONC 34 % (32-36); MEAN CORPUSCULAR VOLUME 79 fL (79.0-98.0); MONOCYTES # (AUTO) 0.3 K/uL (0.0-1.0); MONOCYTES % (AUTO) 4.5 % (1.7-9.3); NEUTROPHILS # (AUTO) 6.7 K/uL (1.8-7.7); NEUTROPHILS % (AUTO) 89.5 % (40.0-70.0); PLATELET COUNT (AUTO) 293 K/uL (130-430); RED BLOOD CELL COUNT(AUTO) 4.17 MIL/uL (4.2-6.2); RED CELL DISTRIBUTION WIDTH 14.4 % (9.0-15.0); WHITE BLOOD COUNT (AUTO) 7.5 K/uL (4.8-10.8)
[2021-10-13 07:14] LABS: CREATININE 0.71 mg/dL (0.55-1.30); POTASSIUM 4.3 mmol/L (3.5-5.1)
--- NOTE | 2021-10-13 07:15 | NUR ---
Opening note Received SBAR from night RN. Patient in bed, respirations even, non labored, 2L nasal canula. Bed in low and locked position call light within reach.
[2021-10-13 08:00] VITALS: BP_SYST 136
[2021-10-13] MEDS: cefTRIAXone 1 GM IVPB PREMIX 50 ML IV SCH (08:10)
[2021-10-13] MEDS: FLUCONAZOLE 200 MG TABLET (DIFLUCAN) PO SCH (08:10)
[2021-10-13] MEDS: PANTOPRAZOLE SODIUM 40 MG/VIAL (PROTONIX) IVP SCH (08:10)
[2021-10-13] MEDS: AZITHROMYCIN 500 MG in NS 250 ML IV SCH (09:45)
--- NOTE | 2021-10-13 11:30 | NUR ---
PT ON ROOM AIR WITH A RESTING SPO2 OF 95%. WALKED PT APPROXIMATELY 50 STEPS ON ROOM AIR. SPO2 DIPPED TO 85% BUT MAINLY STAYED AROUND 88%. O2 RESUMED @ 2 LPM. SPO2 INCREASED TO 94%. Addendum: 10/13/21 at 1256 by Arpita Pagan RT O2 RESUMED AT 2 LPM NC.
--- NOTE | 2021-10-13 11:45 | NUR ---
TRANSFER OF CARE PROVIDED SBAR TO RN JESSICA. PATIENT IN BED, RESPIRATIONS EVEN, NON LABORED, BED IN LOW AND LOCKED POSITION, CALL LIGHT WITHIN REACH, ENDORSED 1200 MEDICATION ADMINISTRATION TO RN
[2021-10-13 12:00] VITALS: BP_SYST 132
--- NOTE | 2021-10-13 16:00 | NUR ---
CM: faxed Home oxygen order and CMN form to [facility] [facility]. Lauren will arrange the concentrator and portable tanks to bedside. -- ABIEL Jason made aware.
[2021-10-13 20:30] VITALS: BP_SYST 135
[2021-10-13 20:40] VITALS: BP_SYST 135
--- NOTE | 2021-10-13 21:20 | NUR ---
THIS RN NOTIFIED THAT PATIENT WOULD LIKE TO GO HOME TONIGHT- NOTE MD ORDERS FOR DISCHARGE ONCE PATIENT HAS 02 CONCENTRATOR/TANK AT HOME. PATIENT TO PROVIDE THIS RN WITH A PICTURE PROOF HER 02 CONCENTRATOR/TANK WAS DELIVERED BY [facility]- PT VOICED EDUCATION WAS PROVIDED TO HER AND HER ON 02 EQUIPMENT. CHARGE NURSE AWARE- WILL DISCHARGE PATIENT. 0 S/S OR C/O AT THIS TIME.
[2021-10-13] MEDS ORDERED: FLUC200T PO (21:49)
[2021-10-13] MEDS ORDERED: ALBU8.5H8 INH (21:49)
[2021-10-13] MEDS ORDERED: BUDE90AE IH (21:49)
[2021-10-13] MEDS ORDERED: AZIT500T3 PO (21:49)
[2021-10-13] MEDS ORDERED: PRED20TA PO (21:49)
--- NOTE | 2021-10-14 11:41 | NUR ---
Discharge Planning: [facility] followed up and faxed forms to Juno Olson's office for signature F#[phone] P#[phone] DCP spoke to Tori.
== END 2021-10-13 22:30 | disposition home or self-care (01) | DRG 242 ==
LOC: SED 14:27 → SMU 17:56 → STU 20:50 → SMU 10-13 13:31
PROVIDERS: ADMIT Family Medicine; ATTEND Family Medicine
PROC: 0DB78ZX Excision of Stomach, Pylorus, Via Natural or Artificial Opening Endoscopic, Diagnostic (ICD-10-PCS; 2021-10-11)
PROC: 0DB58ZX Excision of Esophagus, Via Natural or Artificial Opening Endoscopic, Diagnostic (ICD-10-PCS; principal; 2021-10-11 11:30)
DX: B37.81 Candidal esophagitis (principal); J96.01 Acute respiratory failure with hypoxia; G93.41 Metabolic encephalopathy; E43 Unspecified severe protein-calorie malnutrition; J15.9 Unspecified bacterial pneumonia; E87.2 Acidosis; E87.1 Hypo-osmolality and hyponatremia; J44.0 Chronic obstructive pulmonary disease with (acute) lower respiratory infection; K29.70 Gastritis, unspecified, without bleeding; J45.901 Unspecified asthma with (acute) exacerbation; D64.9 Anemia, unspecified; I10 Essential (primary) hypertension; E03.9 Hypothyroidism, unspecified; Z20.822 Contact with and (suspected) exposure to COVID-19; J44.1 Chronic obstructive pulmonary disease with (acute) exacerbation; R74.01 Elevation of levels of liver transaminase levels; K44.9 Diaphragmatic hernia without obstruction or gangrene; Z79.899 Other long term (current) drug therapy; Z90.49 Acquired absence of other specified parts of digestive tract; Z90.710 Acquired absence of both cervix and uterus; Z88.8 Allergy status to other drugs, medicaments and biological substances; Z68.25 Body mass index [BMI] 25.0-25.9, adult
CPT/HCPCS: 36415; 43239; 71275; 76376; 80048; 80053; 80061; 80307; 81000; 82150; 82550; 83036; 83605; 83690; 83735; 83880; 84100; 84439; 84443; 84484; 85025; 85379; 85610-TC; 85730-TC; 87040; 88305; 88312; 88313; 93005; 94640; 94760; 96365; 96375; 99291; C9113; G0378; J0456; J0696; J1030; J2250; J2405; J2930; J3010; J7050; J7614; Q9967; U0003

== ENCOUNTER 2022-01-29 19:16 | Inpatient (IN) | payer MEDICAID ==
[~2022-01-29] VITALS: Ht 157.5 cm; Wt 48.5 kg
[2022-01-29 19:16] VITALS: BP_SYST 127
[~2022-01-29 19:16] MED LIST changes: +ALBU8.5H8 INH; +AZIT500T3 PO; +BUDE90AE IH; +FLUC200T PO
--- NOTE | 2022-01-29 19:30 | NUR ---
Pt bib als from home. CC SOB dyspnea, febrile and a productive cough. Pt has a history of HTN ashtma , thyrotoxicosis. Recently DX with tuberculosis, acute bronchitis and was 88% on room air when ambulance primary asessment . Pt is on 6 liters with a simple mask . additional past history of hysterectomy ovarian cyst .
--- NOTE | 2022-01-29 20:00 | NUR ---
# 20 gauge angiocath placed to LAC. Use of asceptic technique. Opsite placed over site. Blood return noted. Blood for lab drawn from site. Flushed with 10 cc of normal saline. No evidence of infiltration noted. Patient tolerated well.
--- NOTE | 2022-01-29 20:00 | NUR ---
ER at bedside examining patient.
[2022-01-29] MEDS ORDERED: IPRATROPIUM/ALBUTEROL SULFATE 3 ML AMPUL.NEB (DUONEB) INH ONE (20:15)
[2022-01-29] MEDS ORDERED: NACL 0.9% 1,000 ML IV ONE ×2 (20:15→22:45)
[2022-01-29] MEDS ORDERED: methylPREDNISolone SOD SUCC/PF 62.5 MG/ML VIAL IVP ONE (20:15)
--- NOTE | 2022-01-29 20:16 | NUR ---
Respiratory therapy treatment given bedside.
[2022-01-29 20:39] LABS: BASOPHILS % (AUTO) 0.1 % (0.0-2.0); EOSINOPHILS % (AUTO) 0.1 % (0.0-4.0); HEMATOCRIT 31.8 % (36-48); HEMOGLOBIN 10.9 g/dL (12.0-16.0); LYMPHOCYTES # (AUTO) 0.4 K/uL (1.0-5.5); LYMPHOCYTES % (AUTO) 5.2 % (20.5-51.5); MEAN CORPUSCULAR HEMOGLOBIN 28 pg (27-31); MEAN CORPUSCULAR HGB CONC 34 % (32-36); MEAN CORPUSCULAR VOLUME 83 fL (79.0-98.0); MONOCYTES # (AUTO) 0.5 K/uL (0.0-1.0); MONOCYTES % (AUTO) 6.2 % (1.7-9.3); NEUTROPHILS # (AUTO) 6.6 K/uL (1.8-7.7); NEUTROPHILS % (AUTO) 88.4 % (40.0-70.0); PLATELET COUNT (AUTO) 317 K/uL (130-430); RED BLOOD CELL COUNT(AUTO) 3.85 MIL/uL (4.2-6.2); RED CELL DISTRIBUTION WIDTH 13.9 % (9.0-15.0); WHITE BLOOD COUNT (AUTO) 7.4 K/uL (4.8-10.8)
[2022-01-29 20:55] LABS: ANION GAP 9 (5-15); CALCIUM 8.5 mg/dL (8.4-11.0); CHLORIDE 94 mmol/L (98-107); GLUCOSE 129 mg/dL (70-99); UREA NITROGEN, BLOOD 8 mg/dL (8-21)
[2022-01-29 20:59] LABS: PROTHROMBIN TIME 10.4 SECS (9.5-12.5)
[2022-01-29 21:02] LABS: ALANINE AMINOTRANSFERASE 27 U/L (12-78); ALBUMIN 2.3 g/dL (3.4-4.8); ASPARTATE AMINOTRANSFERASE 71 U/L (10-37); TOTAL BILIRUBIN 0.5 mg/dL (0.0-1.0)
[2022-01-29 21:04] LABS: GFR AFRICAN AMERICAN 142 mL/min (>90)
--- NOTE | 2022-01-29 21:46 | NUR ---
Pt on 3 liters simple mask saturation 96% denies complaints.
[2022-01-29] MEDS ORDERED: iohexoL 350 mgI/mL, 100 ML INFUS..BTL IV ONE (22:03)
[2022-01-29] MEDS ORDERED: PIPERACILLIN/TAZO 3.375 GM in NS 50 ML IV ONE (22:15)
[2022-01-29] MEDS ORDERED: VANCOMYCIN HCL 1,000 MG in NS 250 ML IV ONE (22:15)
[2022-01-29] MEDS ORDERED: POTASSIUM CHLORIDE 20 MEQ/PKT PACKET PO ONE (22:30)
--- NOTE | 2022-01-29 23:05 | NUR ---
REPORT GIVEN TO ASHA BAUTISTA.
[2022-01-30] MEDS ORDERED: VANCOMYCIN HCL 1000 MG/VIAL IV ONE (00:03)
[2022-01-30] MEDS ORDERED: PIPERACILLIN/TAZOBACTAM 3.375 GM/VIAL (ZOSYN) IV ONE (00:04)
--- NOTE | 2022-01-30 02:16 | NUR ---
Admit bed requested Patient will be admitted to care of . Admitted to unit.telemetry Diagnosis chf Inpatient (Yes or No) no Observation (Yes or No) yes Orientation concerns or request close to nursing station (Yes or No)no Covid Status negative On vent or bipap no Isolation requirements yes (TB) Needs a sitter no From Home (Yes or if No enter name of facility) yes Requires Dialysis (Yes or No) no Med Rec Completed (Yes of No) yes
--- NOTE | 2022-01-30 03:41 | NUR ---
PT WAS TRANSFERED TO BED 127B VIA BED. EMT,NURSE TRANSPORTED PT. CRISTOBAL AT BEDSIDE TO RECEIVE PT, BEDSIDE REPORT GIVEN. NO DISTRESS NOTED, PT ON 6L OXYGEN MASK.
--- NOTE | 2022-01-30 03:45 | NUR ---
ADMISSION NOTE Received patient from ER via gurney. Patient admitted with diagnosis of CHF. Patient is awake, alert, oriented X 4. Patient oriented to hospital room, call light, toileting, pain management and safety-teach back done. Patient informed that their room number is 127B. Personal belongings checked and Belongings List documented. Call light within reach.
[2022-01-30 03:54] VITALS: BP_SYST 99
--- NOTE | 2022-01-30 05:00 | NUR ---
Patient stated that she has been taking TB meds since September and that she does not know what medications she takes, but that someone comes to her house to administer them Thursday through Thursday. She also stated that she let her case briefer know that she is in the hospital. Patient also stated that she doesn't know if she is HIV positive, but that they tested her at [facility] and that her primary doctor said she needs to be tested again.
--- NOTE | 2022-01-30 07:30 | NUR ---
Closing Patient resting in bed, unlabored breathing on 6L mask. Patient stated that she feels dizzy when she stands up. Bedside commode and bedpan in room, bed alarm on. Patient reminded to call if she needs to use the bathroom. Safety and isolation precautions in place.
[2022-01-30 07:59] LABS: BASOPHILS % (AUTO) 0.1 % (0.0-2.0); HEMOGLOBIN 9.3 g/dL (12.0-16.0); LYMPHOCYTES # (AUTO) 0.2 K/uL (1.0-5.5); LYMPHOCYTES % (AUTO) 7.8 % (20.5-51.5); MEAN CORPUSCULAR HEMOGLOBIN 29 pg (27-31); MEAN CORPUSCULAR HGB CONC 35 % (32-36); MEAN CORPUSCULAR VOLUME 83 fL (79.0-98.0); MONOCYTES # (AUTO) 0.1 K/uL (0.0-1.0); NEUTROPHILS # (AUTO) 2.8 K/uL (1.8-7.7); NEUTROPHILS % (AUTO) 88.1 % (40.0-70.0); PLATELET COUNT (AUTO) 254 K/uL (130-430); RED BLOOD CELL COUNT(AUTO) 3.24 MIL/uL (4.2-6.2); RED CELL DISTRIBUTION WIDTH 14.1 % (9.0-15.0); WHITE BLOOD COUNT (AUTO) 3.1 K/uL (4.8-10.8)
[2022-01-30 08:00] VITALS: BP_SYST 106
--- NOTE | 2022-01-30 08:00 | NUR ---
OPENING NOTE Patient sitting up in bed resting, eating breakfast. Patient has no sign of distress and denies pain. Patient removed her oxygen mask while eating, patient saturating 100% on room air. Patients breathing is nonlabored and even. When asked about her TB diagnosis, patient denied having a history of TB and asked to be removed from isolation so that she could have visitors. Educated the patient on ID procedures, verbalized understanding. All needs met at this time and safety checks made.
--- NOTE | 2022-01-30 08:08 | NUR ---
CONSULTATION PAGED REASON FOR CONSULTATION:TB WAS CONSULT CALLED?Y PERSON WHO WAS NOTIFIED:CHELSEA CONSULTING PHYSICIAN:ULISES LANIER RECREATION AIDE SPECIALTY:ID RECREATION AIDE PHONE NUMBER:[phone] REQUESTING PHYSICIAN:EULALIO GOLD
--- NOTE | 2022-01-30 08:27 | NUR ---
SPOKE WITH INFECTIOUS DISEASE Spoke with Roma with infectious disease. She stated she has already reached out to the state regarding patient's status. Will update nursing staff when information is available. As of now, patient is on airborne isolation in a single room and with the door closed.
[2022-01-30 08:41] LABS: CALCIUM 7.2 mg/dL (8.4-11.0); CREATININE 0.37 mg/dL (0.55-1.30)
[2022-01-30 08:47] LABS: ALBUMIN 1.9 g/dL (3.4-4.8); TOTAL BILIRUBIN 0.3 mg/dL (0.0-1.0)
[2022-01-30] MEDS ORDERED: FUROSEMIDE 40 MG/4 ML VIAL IVP SCH (09:00)
[2022-01-30] MEDS ORDERED: cefTRIAXone 1 GM VIAL IM ONE (09:00)
[2022-01-30] MEDS: POTASSIUM CHLORIDE 20 MEQ TAB.PRT.SR PO ONE ×2 (13:00→17:53)
[2022-01-30 13:26] VITALS: BP_SYST 120
[2022-01-30] MEDS: CEFTRIAXONE SOD 1 GM/ D5W 50 ML IV SCH ×2 (13:27)
[2022-01-30] MEDS ORDERED: ISONIAZID 300 MG TABLET PO SCH (14:00)
--- NOTE | 2022-01-30 14:00 | NUR ---
SPOKE TO PATIENT REGARDING ISOLATION PRECAUTIONS Patient's was found in the room despite isolation precautions. Educated both the patient and family. verbalized understanding and left the facility. Notified front line supervisor that the patient is on isolation precautions and unable to receive visitors at this time.
--- NOTE | 2022-01-30 15:34 | NUR ---
SPOKE WITH MD Spoke with Dr Butts and notified him that he needs to speak with Dr Seth regarding patient's medications. MD stated he would call and speak with Dr Seth.
[2022-01-30 15:58] VITALS: BP_SYST 107
--- NOTE | 2022-01-30 16:38 | NUR ---
ROUNDS Patient resting in bed, no sign of distress and denies pain. Patient continues to refuse her one time dose of potassium. Patient is upset that she is unable to receive visitors at this time. Explained to the patient the procedures and isolation precautions, patient refused to acknowledge. Patient's breathing is nonlabored and even on room air. All needs met at this time and safety checks made.
[2022-01-30] MEDS ORDERED: PYRIDOXINE HCL 50 MG TABLET PO ONE (17:00)
[2022-01-30] MEDS ORDERED: ETHAMBUTOL 400 MG PO ONE (17:00)
--- NOTE | 2022-01-30 17:59 | NUR ---
MEDICATION REFUSAL Patient refused potassium, attempted to educate the patient but patient continued to refuse. Disposed of medication in medication room.
[2022-01-30] MEDS ORDERED: ALBUTEROL MDI INHALATION 8 GM INH INH PRN (18:00)
--- NOTE | 2022-01-30 19:33 | NUR ---
CLOSING NOTE Patient in bed resting, no sign of distress or pain. Patient has been noncompliant with her care. Attempted to educate the patient throughout the day but patient refused to acknowledged and frequently asked staff to leave the room and leave her alone. Patients breathing is nonlabored and even, oxygenation 100% on room air. All needs met at this time and safety checks made. Endorsed to shift commander nurse.
[2022-01-30 20:00] VITALS: BP_SYST 109; BP_SYST 110
[2022-01-31] VITALS: BP_SYST 112
[2022-01-31 04:00] VITALS: BP_SYST 119
[2022-01-31 07:21] LABS: BASOPHILS % (AUTO) 0.1 % (0.0-2.0); EOSINOPHILS % (AUTO) 0.1 % (0.0-4.0); HEMATOCRIT 27.7 % (36-48); HEMOGLOBIN 9.6 g/dL (12.0-16.0); LYMPHOCYTES # (AUTO) 0.4 K/uL (1.0-5.5); LYMPHOCYTES % (AUTO) 3.7 % (20.5-51.5); MEAN CORPUSCULAR HEMOGLOBIN 29 pg (27-31); MEAN CORPUSCULAR HGB CONC 35 % (32-36); MEAN CORPUSCULAR VOLUME 82 fL (79.0-98.0); MONOCYTES # (AUTO) 0.5 K/uL (0.0-1.0); MONOCYTES % (AUTO) 4.6 % (1.7-9.3); NEUTROPHILS # (AUTO) 10.9 K/uL (1.8-7.7); NEUTROPHILS % (AUTO) 91.5 % (40.0-70.0); PLATELET COUNT (AUTO) 333 K/uL (130-430); RED BLOOD CELL COUNT(AUTO) 3.36 MIL/uL (4.2-6.2); RED CELL DISTRIBUTION WIDTH 14.1 % (9.0-15.0); WHITE BLOOD COUNT (AUTO) 11.9 K/uL (4.8-10.8)
--- NOTE | 2022-01-31 07:25 | NUR ---
Patient spent a quiet night with no complaints of pain or discomfort, she did not provide a urine sample as she verbalized she does not wasnt to pee, to endorse to oncoming RN to get a urine sample.
[2022-01-31 07:59] LABS: CALCIUM 8.2 mg/dL (8.4-11.0); CREATININE 0.4 mg/dL (0.55-1.30)
[2022-01-31 08:00] VITALS: BP_SYST 113
--- NOTE | 2022-01-31 08:00 | NUR ---
Initial Notes Patient is AOx4. Ambulatory, uses bedside commode. No ss of distress noted. Breathing is even and nonlabored, on room air. IV patent. Vital signs obtained, as documented. Patient is eating breakfast. Bed is locked and at lowest position. educated on fall prevention and safety precautions. Call light within reach.
--- NOTE | 2022-01-31 09:30 | NUR ---
critical Paged and spoke to Dr. Noble. aware of critical Potassium of 2.7. New orders received.
[2022-01-31] MEDS: ETHAMBUTOL 400 MG PO SCH (10:40)
[2022-01-31] MEDS: PYRIDOXINE HCL 50 MG TABLET PO SCH (10:40)
[2022-01-31] MEDS: CEFTRIAXONE SOD 1 GM/ D5W 50 ML IV SCH ×2 (11:42)
[2022-01-31 11:48] VITALS: BP_SYST 107
[2022-01-31] MEDS ORDERED: POTASSIUM CHLORIDE 20 MEQ TAB.PRT.SR PO ONE ×2 (12:00→18:30)
--- NOTE | 2022-01-31 12:00 | NUR ---
Notes Patient is resting in bed. No complaints of distress, denies pain, denies SOB. Patient is stable. Safety precautions in place and call light within reach.
[2022-01-31 13:54] LABS: BARBITURATE, URINE NEGATIVE (NEG <=200); BENZODIAZEPINE, URINE NEGATIVE (NEG <=150); CANNABINOID, URINE NEGATIVE (NEG <=50); COCAINE, URINE NEGATIVE (NEG <=150); METHAMPHETAMINES SCREEN,URINE NEGATIVE (NEG <=500); OPIATE, URINE POSITIVE (NEG <=100); PHENCYCLIDINE SCREEN,URINE NEGATIVE (NEG <=25); UR TRICYCLIC ANTIDEPRESSANTS NEGATIVE (NEG <=300); URINE AMPHETAMINE NEGATIVE (NEG <=500); URINE METHADONE NEGATIVE (NEG <=200); URINE OXYCODONE SCREEN NEGATIVE (NEG <=100); URINE PROPOXYPHENE SCREEN NEGATIVE (NEG <=300)
[2022-01-31] MEDS ORDERED: ISONIAZID 300 MG TABLET PO ONE (14:00)
--- NOTE | 2022-01-31 16:00 | NUR ---
Notes Patient is resting, eyes closed. No ss of distress noted. Denies pain. Bed is locked and at lowest position. call light within reach.
[2022-01-31 16:31] VITALS: BP_SYST 105
--- NOTE | 2022-01-31 19:55 | NUR ---
Closing Notes Patient is eating dinner. Denies pain. No distress noted. Breathing is even and nonlabored, on room air. IV patent. All needs met. Patient is stable. Safety precautions in place and call light within reach. Endorsed care to Cyndi, bedside report given at bedside.
[2022-01-31 20:00] VITALS: BP_SYST 114
[2022-02-01 08:00] VITALS: BP_SYST 108
--- NOTE | 2022-02-01 08:00 | NUR ---
Initial Notes Patient is Aox4. Ambulatory. No ss of distress noted. Patient denies SOB or severe pain at this time. Vital signs obtained, as documented. Breathing is even and nonlabored, on room air. Iv patent. Patient is eating breakfast. Offered washcloths and towels for bed bath, patient stated will do later. Bed is locked and at lowest position. Call light within reach.
[2022-02-01] MEDS: PYRIDOXINE HCL 50 MG TABLET PO SCH (09:42)
[2022-02-01] MEDS: ETHAMBUTOL 400 MG PO SCH (09:42)
[2022-02-01 10:44] LABS: BASOPHILS % (AUTO) 0.2 % (0.0-2.0); EOSINOPHILS % (AUTO) 0.2 % (0.0-4.0); HEMATOCRIT 29.3 % (36-48); HEMOGLOBIN 9.9 g/dL (12.0-16.0); LYMPHOCYTES # (AUTO) 0.3 K/uL (1.0-5.5); LYMPHOCYTES % (AUTO) 5.9 % (20.5-51.5); MEAN CORPUSCULAR HEMOGLOBIN 28 pg (27-31); MEAN CORPUSCULAR HGB CONC 34 % (32-36); MEAN CORPUSCULAR VOLUME 83 fL (79.0-98.0); MONOCYTES # (AUTO) 0.4 K/uL (0.0-1.0); MONOCYTES % (AUTO) 6.5 % (1.7-9.3); NEUTROPHILS # (AUTO) 5.1 K/uL (1.8-7.7); NEUTROPHILS % (AUTO) 87.2 % (40.0-70.0); PLATELET COUNT (AUTO) 303 K/uL (130-430); RED BLOOD CELL COUNT(AUTO) 3.53 MIL/uL (4.2-6.2); RED CELL DISTRIBUTION WIDTH 14.2 % (9.0-15.0)
[2022-02-01 10:45] LABS: WHITE BLOOD COUNT (AUTO) 5.9 K/uL (4.8-10.8)
[2022-02-01] MEDS: CEFTRIAXONE SOD 1 GM/ D5W 50 ML IV SCH ×2 (11:20)
[2022-02-01 12:00] VITALS: BP_SYST 116
--- NOTE | 2022-02-01 12:00 | NUR ---
Notes Patient is eating lunch. Denies pain. Denies SOB. Bed locked and at lowest position. Call light within reach.
[2022-02-01 13:18] LABS: ALBUMIN 1.9 g/dL (3.4-4.8); CALCIUM 8.4 mg/dL (8.4-11.0); CREATININE 0.37 mg/dL (0.55-1.30); TOTAL BILIRUBIN 0.5 mg/dL (0.0-1.0)
[2022-02-01] MEDS ORDERED: ACETAMINOPHEN 325 MG TABLET PO PRN ×2 (15:00→15:15)
[2022-02-01] MEDS ORDERED: POTASSIUM CHLORIDE 20 MEQ TAB.PRT.SR PO ONE (15:30)
[2022-02-01 16:00] VITALS: BP_SYST 109
--- NOTE | 2022-02-01 16:16 | NUR ---
Notes Patient is resting, eyes closed, aroused to name. No ss of distress noted. Denies pain. Patient is stable. Safety precautions in place and call light within reach.
--- NOTE | 2022-02-01 19:01 | NUR ---
Closing Notes Patient is eating dinner. Denies pain. No ss of distress noted. Breathing is even and nonlabored, on room air. No SOB noted. IV patent. Patient is stable. All needs met. Safety precautions in place and call light within reach.
[2022-02-01 20:00] VITALS: BP_SYST 128
[2022-02-02] VITALS: BP_SYST 127
--- NOTE | 2022-02-02 07:22 | NUR ---
REPORT GIVEN TO NURSE SILVERIO
[2022-02-02 08:00] VITALS: BP_SYST 118
--- NOTE | 2022-02-02 08:00 | NUR ---
Initial Notes Patient is resting, in bed. No ss of distress noted. Breathing is even and nonlabored, on room air. Vital signs obtained, as documented. Patient is febrile with temp of 101.2F. HR is 123 bpm. BP 118/76. Patient denies pain. No shivering noted. Cooling measures in place, ice packs to body and removed all blankets. Cold wash cloth to forehead. Patient states feels fine. Safety precautions in place and call light within reach.
[2022-02-02] MEDS: ETHAMBUTOL 400 MG PO SCH (08:35)
[2022-02-02] MEDS: PYRIDOXINE HCL 50 MG TABLET PO SCH (08:35)
--- NOTE | 2022-02-02 08:45 | NUR ---
NOTES PATIENT REMAINS FEBRILE, TEMP IS 100.7 F. ADMINISTERED TYLENOL AND SCHEDULED MEDICATIONS. PATIENT DENIES PAIN. NO SS OF DISTRESS NOTED. NO SOB. IV PATENT. COOLING MEASURES IN PLACE. SAFETY PRECAUTIONS IN PLACE AND CALL LIGHT WITHIN REACH.
[2022-02-02 09:21] LABS: CALCIUM 8.4 mg/dL (8.4-11.0); CREATININE 0.4 mg/dL (0.55-1.30); TOTAL BILIRUBIN 0.5 mg/dL (0.0-1.0)
[2022-02-02 09:30] LABS: BASOPHILS % (AUTO) 0.4 % (0.0-2.0); EOSINOPHILS % (AUTO) 0.1 % (0.0-4.0); HEMATOCRIT 28.6 % (36-48); HEMOGLOBIN 9.9 g/dL (12.0-16.0); LYMPHOCYTES # (AUTO) 0.4 K/uL (1.0-5.5); MEAN CORPUSCULAR HEMOGLOBIN 29 pg (27-31); MEAN CORPUSCULAR HGB CONC 35 % (32-36); MEAN CORPUSCULAR VOLUME 83 fL (79.0-98.0); MONOCYTES # (AUTO) 0.6 K/uL (0.0-1.0); MONOCYTES % (AUTO) 8.9 % (1.7-9.3); NEUTROPHILS # (AUTO) 5.7 K/uL (1.8-7.7); NEUTROPHILS % (AUTO) 84.6 % (40.0-70.0); PLATELET COUNT (AUTO) 321 K/uL (130-430); RED BLOOD CELL COUNT(AUTO) 3.44 MIL/uL (4.2-6.2); RED CELL DISTRIBUTION WIDTH 13.9 % (9.0-15.0); WHITE BLOOD COUNT (AUTO) 6.7 K/uL (4.8-10.8)
[2022-02-02] MEDS: CEFTRIAXONE SOD 1 GM/ D5W 50 ML IV SCH ×2 (11:00)
[2022-02-02 12:00] VITALS: BP_SYST 99
--- NOTE | 2022-02-02 12:00 | NUR ---
Notes Patient is eating lunch. No ss of distress noted. NO SOB noted. Afebrile. Denies pain. Safety precautions in place and call light within reach.
[2022-02-02 16:00] VITALS: BP_SYST 115
--- NOTE | 2022-02-02 16:00 | NUR ---
NOTES PATIENT IS RESTING, EYES CLOSED. NO SS OF DISTRESS NOTED. NO SOB NOTED. NO FACIAL GRIMACE. SAFETY PRECAUTIONS IN PLACE AND CALL LIGHT WITHIN REACH.
--- NOTE | 2022-02-02 19:32 | NUR ---
CLOSING NOTES PATIENT IS AWAKE, WATCHING TV. NO SS OF DISTRESS NOTED. PATIENT DENIES PAIN. NO SOB NOTED. BREATHING IS EVEN AND NONLABORED, ON ROOM AIR. AFEBRILE. IV PATENT. PATIENT IS STABLE. ALL NEEDS MET. SAFETY PRECAUTIONS IN PLACE AND CALL LIGHT WITHIN REACH. ENDORSED CARE AND GAVE REPORT TO MICHELE JAIN.
[2022-02-02 20:00] VITALS: BP_SYST 123
[2022-02-02] MEDS ORDERED: ONDANSETRON HCL 4 MG/2 ML VIAL IVP PRN (21:45)
[2022-02-03] VITALS: BP_SYST 97
--- NOTE | 2022-02-03 07:30 | NUR ---
Patient stable through night, no acute changes. Patient states she gets short of breath at times when she walks. Oxygen and commode at bedside. Reported some nausea last night. Patient states she sometimes gets nauseous when she coughs. New order for Rob MOMIN from Dr. Butts. Safety and isolation precautions in place.
--- NOTE | 2022-02-03 07:44 | NUR ---
Report received from cage shift manager RN for continuity of care. Patient stable condition.
[2022-02-03] MEDS: ETHAMBUTOL 400 MG PO SCH (08:19)
[2022-02-03] MEDS: CEFTRIAXONE SOD 1 GM/ D5W 50 ML IV SCH ×2 (08:30)
[2022-02-03] MEDS: PYRIDOXINE HCL 50 MG TABLET PO SCH (08:49)
[2022-02-03 11:23] VITALS: BP_SYST 119
--- NOTE | 2022-02-03 14:39 | NUR ---
Discharge [id number]-for [place] [facility] completed and Faxed to [phone]/phone [phone]-left message requesting DC clearance for the patient
[2022-02-03 16:00] VITALS: BP_SYST 124
[2022-02-03 20:00] VITALS: BP_SYST 116
--- NOTE | 2022-02-03 20:33 | NUR ---
RECEIVED PT LYING IN BED, NO DISTRESS NOTED. DENIES PAIN. NO FEVER, NO COUGH, MAINTAINED AIRBORNE PRECAUTION
[2022-02-04 00:30] VITALS: BP_SYST 104
[2022-02-04 08:00] VITALS: BP_SYST 115
[2022-02-04] MEDS: PYRIDOXINE HCL 50 MG TABLET PO SCH (08:50)
[2022-02-04] MEDS: ETHAMBUTOL 400 MG PO SCH (08:50)
[2022-02-04] MEDS: CEFTRIAXONE SOD 1 GM/ D5W 50 ML IV SCH ×2 (10:53)
--- NOTE | 2022-02-04 13:24 | NUR ---
Spoke w/ [facility]-Leigh Ann Karen [phone]-This patient is HIV (+) and Dr Laguna [phone]-will need to talk to Dr Juno Noble ID before they will approve discharge for the patient. I left a message for Dr Noble to call me regarding the patient's DC.
--- NOTE | 2022-02-04 20:27 | NUR ---
RECEIVED PT LYING IN BED, NO DISTRESS NOTED, DENIES PAIN. PT HAS EXPRESSED HER DISSATISFACTION WITH HER CARE. PT STATES SHE IS LEAVING AMA. ENCOURAGED PT TO STAY ONE MORE NIGHT TO COMPLETE HER DISCHARGE BETWEEN THE AGENCIES, HOWEVER SHE IS REFUSING. PT SIGNED AMA FORM, GIVEN TO PICK UP MAN. PT IS CALL ING TO PICK HER UP. Addendum: 02/04/22 at 2106 by Tanvir Bates RN RN 2105: FAMILY ARRIVED. PT LEFT WALKING WITH WALKER, SHE DID NOT WANT A WHEELCHAIR. Addendum: 02/04/22 at 2107 by Tanvir Bates RN RN SALINE LOCK REMOVED. CATH TIP INTACT. ALL BELONGINGS WITH PT.
--- NOTE | 2022-02-04 21:04 | NUR ---
called [facility] [phone] and left message and Marisel Jaimes that pt left ama and to please call back and ask for [place] child support case officer.
--- NOTE | 2022-02-05 10:01 | NUR ---
Spoke w/ Leigh Ann Jones at [facility]-notified her of patient's AMA last night- FAXed requested information to her, including [id number] form and FAX verification the form was faxED TO [facility] CONTR[facility] ON 02/03/22.
== END 2022-02-04 21:05 | disposition left against medical advice (07) | DRG 141 ==
LOC: SED 19:16 → STU 01-30 02:13 → OBSVTOIN 01-30 02:13 → STU 01-30 03:25 → SMU 02-02 22:30
PROVIDERS: ADMIT Internal Medicine; ATTEND Internal Medicine
PROC: 5A0935A Assistance with Respiratory Ventilation, Less than 24 Consecutive Hours, High Flow/Velocity Cannula (ICD-10-PCS; principal; 2022-01-30)
DX: J45.901 Unspecified asthma with (acute) exacerbation (principal); J96.01 Acute respiratory failure with hypoxia; R65.11 Systemic inflammatory response syndrome (SIRS) of non-infectious origin with acute organ dysfunction; A15.9 Respiratory tuberculosis unspecified; Z20.822 Contact with and (suspected) exposure to COVID-19; Z88.8 Allergy status to other drugs, medicaments and biological substances; Z79.899 Other long term (current) drug therapy; Z79.1 Long term (current) use of non-steroidal anti-inflammatories (NSAID); Z90.710 Acquired absence of both cervix and uterus; Z90.49 Acquired absence of other specified parts of digestive tract
CPT/HCPCS: 36415; 36600; 71045; 71275; 76376; 80048; 80053; 80307; 82803-TC; 83605; 83735; 83880; 84132; 84484; 85025; 85379; 85610-TC; 85651-TC; 85730-TC; 87040; 93005; 93306; 94640; 96361; 96365; 96368; 96375; 99291; G0378; J0696; J2543; J2930; J3370; J7030; J7050; J7060; Q9967

== ENCOUNTER 2022-02-24 13:30 | Emergency (ER) | payer OTHER, MEDICAID ==
[~2022-02-24] VITALS: Ht 152.4 cm; Wt 52.2 kg
[2022-02-24 13:34] VITALS: BP_SYST 101
--- NOTE | 2022-02-24 13:34 | NUR ---
Placed in room 06 . Placed on rn cardiac, blood pressure machine and pulse oximeter. To gown for exam. Side rails up.
--- NOTE | 2022-02-24 13:35 | NUR ---
Pt brought by ambulance , Alert but non-verbal, follows commands, pt presents to ER with SOB , O2 was 76% on 2L NC, Hx of CHF , skin pink and warm, cap refill <3, VSS, will cont to monitor. pt arrived on NRB 15 L, current O2 99%
--- NOTE | 2022-02-24 13:40 | NUR ---
Dr Gallardo evaluating patient at bedside
--- NOTE | 2022-02-24 13:54 | NUR ---
INFLUENZA AND COVID SWABS OBTAINED AND SENT TO LAB.
--- NOTE | 2022-02-24 13:59 | NUR ---
RT at bedside
--- NOTE | 2022-02-24 14:00 | NUR ---
Pt placed on Venti mask per RT, 15 L , will cont monitor
[2022-02-24 14:09] LABS: HEMATOCRIT 33.4 % (36-48); HEMOGLOBIN 11.1 g/dL (12.0-16.0); MEAN CORPUSCULAR HEMOGLOBIN 27 pg (27-31); MEAN CORPUSCULAR HGB CONC 33 % (32-36); MEAN CORPUSCULAR VOLUME 81 fL (79.0-98.0); PLATELET COUNT (AUTO) 307 K/uL (130-430); RED BLOOD CELL COUNT(AUTO) 4.13 MIL/uL (4.2-6.2); RED CELL DISTRIBUTION WIDTH 14.5 % (9.0-15.0); WHITE BLOOD COUNT (AUTO) 5.8 K/uL (4.8-10.8)
[2022-02-24 14:20] LABS: ANION GAP 8 (5-15); CALCIUM 8.9 mg/dL (8.4-11.0); CHLORIDE 96 mmol/L (98-107); CREATININE 0.42 mg/dL (0.55-1.30); GLUCOSE 79 mg/dL (70-99); UREA NITROGEN, BLOOD 13 mg/dL (8-21)
[2022-02-24 14:21] LABS: BAND % (MANUAL) 5 % (0-6); BASOPHILS % (MANUAL) 0 % (0-2); EOSINOPHILS % (MANUAL) 0 % (0-7); LYMPHOCYTES % (MANUAL) 16 % (20-46); METAMYELOCYTES % 2 % (0-0); MONOCYTES % (MANUAL) 3 % (0-11)
[2022-02-24 14:23] LABS: GFR AFRICAN AMERICAN 214 mL/min (>90)
[2022-02-24] MEDS ORDERED: ALBUTEROL MDI INHALATION 8 GM INH INH PRN (14:30)
[2022-02-24] MEDS ORDERED: KETOROLAC TROMETHAMINE 30 MG VIAL IVP ONE (14:30)
--- NOTE | 2022-02-24 14:30 | NUR ---
RT NOTE: 1430 Patient placed on 4LPM nasal cannula per Dr Kim and ABG results. Patient tolerating change in O2. SpO2 between 95-98%. Awaiting for MDI from pharmacy to administer to patient.
[2022-02-24 14:33] LABS: ALANINE AMINOTRANSFERASE 15 U/L (12-78); ALBUMIN 1.8 g/dL (3.4-4.8); ASPARTATE AMINOTRANSFERASE 48 U/L (10-37); TOTAL BILIRUBIN 0.5 mg/dL (0.0-1.0)
--- NOTE | 2022-02-24 14:45 | NUR ---
RT NOTE: 1445 Patient refused to take MDI tx until she takes cough medicine. RN made aware.
[2022-02-24] MEDS ORDERED: guaiFENesin/DEXTROMETHORPHAN 10 ML UDC PO ONE (15:00)
[2022-02-24] MEDS ORDERED: BENZONATATE 100 MG CAPSULE (TESSALON) PO ONE (15:00)
[2022-02-24] MEDS ORDERED: ALBUMIN HUMAN 25% 100 ML IV ONE (15:15)
--- NOTE | 2022-02-24 16:11 | NUR ---
Pt A&Ox4, pt medicated as ordered, pt on 4L NC at this time, will cont to monitor
[2022-02-24] MEDS ORDERED: cefTRIAXone 1 GM VIAL IM ONE (17:00)
[2022-02-24] MEDS ORDERED: AZITHROMYCIN 500 MG in NS 250 ML IV ONE (17:00)
[2022-02-24] MEDS ORDERED: cefTRIAXone 1 GM IVPB PREMIX 50 ML IV ONE ×2 (17:15→17:17)
[2022-02-24] MEDS ORDERED: methylPREDNISolone SOD SUCC 500 MG/VIAL (Solu-MEDROL) IV ONE (17:30)
[2022-02-24] MEDS ORDERED: NACL 0.9% 1,000 ML IV ONE ×2 (17:30→20:00)
[2022-02-24] MEDS ORDERED: POTASSIUM CHLORIDE 20 MEQ/PKT PACKET PO ONE (17:45)
[2022-02-24] MEDS ORDERED: ISON300T19 PO (18:14)
[2022-02-24] MEDS ORDERED: PYRI-6 PO (18:14)
[2022-02-24] MEDS ORDERED: MYC150 PO (18:14)
--- NOTE | 2022-02-24 18:16 | NUR ---
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
[2022-02-24] MEDS ORDERED: AZITHROMYCIN 500 MG/VIAL (ZITHROMAX) IV ONE (18:23)
--- NOTE | 2022-02-24 19:28 | NUR ---
Pt placed on 2L NC, O2 92-93%
--- NOTE | 2022-02-24 19:28 | NUR ---
Report given to Renata BAUTISTA
--- NOTE | 2022-02-24 19:49 | NUR ---
[facility] ROOM 548 TELE ,S [phone] ALS AMBUSERVE 2024
[2022-02-24 20:16] VITALS: BP_SYST 89
--- NOTE | 2022-02-24 20:20 | NUR ---
PATIENT RESTING IN BED, EASY TO AROUSE, FAMILY AT TBESSIDE, UPDATED ON PLAN OF CARE. PATIENT ASSISTED INTO POSITION OF COMFORT AT THIS TIME. O2 IN USE NO S/S OF ANY DISTRESS NOTED, ABD SOFT NON-TENDER TO PALPATION NO S/S OF ANY EDEMA NOTED IVF INFUSING PER ORDER, SIDE RAILS UP WILL CONTINIE TO MONITOR.
--- NOTE | 2022-02-24 21:30 | NUR ---
patient picker and packer for transfer to [place], report called to [facility], patient remained stable for transport.
== END 2022-02-24 21:25 | disposition short-term general hospital (02) ==
LOC: SED 13:30
DX: J18.1 Lobar pneumonia, unspecified organism (principal); R53.1 Weakness; E88.09 Other disorders of plasma-protein metabolism, not elsewhere classified; R06.02 Shortness of breath; R05.9 Cough, unspecified; R09.81 Nasal congestion; J45.909 Unspecified asthma, uncomplicated; I10 Essential (primary) hypertension; Z88.5 Allergy status to narcotic agent; Z79.899 Other long term (current) drug therapy; Z20.822 Contact with and (suspected) exposure to COVID-19
CPT/HCPCS: 99285; 96365; 96367; 71045; 96375; 87426; 85027; 80053; 82550; 84703; 83880; 85007; 87040; 84484; 36415; 36600; 82803; 83605; 87804 ×2; P9046; J0456; J0696; J1885